=== PATIENT | female | born 1945 | race Two or more races ===

== ENCOUNTER 2021-07-17 10:56 | Emergency (ER) | payer OTHER ==
[~2021-07-17] VITALS: Ht 160 cm; Wt 86.2 kg
[2021-07-17] MEDS ORDERED: RAMIPRIL1.25 MG PO (11:24)
[2021-07-17] MEDS ORDERED: OZEMPIC0.25 MG/0. SQ (11:25)
[2021-07-17] MEDS ORDERED: METOPROLOL SUCC50 MG PO (11:25)
[2021-07-17] MEDS ORDERED: DULOXETINE HCL30 MG PO (11:25)
[2021-07-17] MEDS ORDERED: ATORVASTATIN CA20 MG PO (11:25)
[2021-07-17] MEDS ORDERED: ALENDRONATE SOD35 MG PO (11:26)
== END 2021-07-17 16:05 | disposition home or self-care (01) ==
LOC: ER 10:56
DX: S00.83XA Contusion of other part of head, initial encounter (principal); S80.02XA Contusion of left knee, initial encounter; W18.30XA Fall on same level, unspecified, initial encounter; Y93.9 Activity, unspecified; Y92.018 Other place in single-family (private) house as the place of occurrence of the external cause; Z88.0 Allergy status to penicillin; Z88.8 Allergy status to other drugs, medicaments and biological substances; I10 Essential (primary) hypertension

== ENCOUNTER 2022-11-07 20:37 | Emergency (ER) | payer OTHER ==
[~2022-11-07] VITALS: Ht 160 cm; Wt 81.6 kg
[~2022-11-07 20:37] MED LIST: ALENDRONATE SOD35 MG PO; ATORVASTATIN CA20 MG PO; DULOXETINE HCL30 MG PO; METOPROLOL SUCC50 MG PO; OZEMPIC0.25 MG/0. SQ; RAMIPRIL1.25 MG PO
== END 2022-11-07 23:04 | disposition home or self-care (01) ==
LOC: ER 20:37
DX: J06.9 Acute upper respiratory infection, unspecified (principal); R53.81 Other malaise; Z20.822 Contact with and (suspected) exposure to COVID-19; Z88.0 Allergy status to penicillin; Z88.1 Allergy status to other antibiotic agents
CPT/HCPCS: 36415; 96372; 99282; J1885